=== PATIENT | male | born 1995 | race Caucasian/White ===

== ENCOUNTER 2020-04-13 19:53 | Observation (INO) ==
[2020-04-13] MEDS ORDERED: SODIUM CHLORIDE 0.9% 500 ML IV SCH (20:30)
--- NOTE | 2020-04-13 20:31 | Emergency Department Note ---
Impression & Plan RLQ abdominal pain, Acute appendicitis ED Provider Note NAME: ANAYA MILLER AGE: 24 SEX: M : 1995 ARRIVES VIA: Walk-In INFORMANT: [Patient] ED PROVIDER(S): [Raimundo Reddy MD] CHIEF COMPLAINT: Abdominal pain HISTORY OF PRESENT ILLNESS: The patient is a 24-year-old male who has had about 4 days of right lower quadrant abdominal pain. The pain is worse to palpate in the area and to walk, the pain is better sitting still. The pain is an 8/10. No pain radiation, no testicular pain. There has been no fever, nausea or vomiting, no diarrhea. Patient was concerned that this could be his appendix. He has no history of previous abdominal surgeries. REVIEW OF SYSTEMS: See HPI for pertinent positives and negatives. A total of ten systems were reviewed and were otherwise negative. PMHx/PSHx: See Below SOCIAL HISTORY: See Below. PHYSICAL EXAM: GENERAL: Patient is in no acute distress. HEENT: No acute trauma, normocephalic atraumatic, mucous membranes moist, no nasal congestion, no scleral icterus. NECK: No stridor, no adenopathy, no meningismus, trachea is midline. LUNGS: Clear to auscultation bilaterally, no wheeze, no rhonchi, breath sounds equal. HEART: Without murmurs gallops or rubs, regular rate and rhythm. ABDOMEN: Soft, moderately tender in the right lower quadrant, bowel sounds positive, no hernias. EXTREMITIES: No cyanosis or edema, full range of motion of all the joints without pain or difficulty, no signs for acute trauma. NEUROLOGIC: Oriented x 3, no acute motor or sensory deficits, no focal weakness. SKIN: No rash, no jaundice, no diaphoresis. DIFFERENTIAL DIAGNOSIS: Appendicitis, testicular torsion, infections, diverticulitis, UTI, obstruction, mesenteric ischemia, aortic pathology, inflammatory bowel disease, renal colic, PUD, pancreatitis, biliary pathology, hernia, volvulus, constipation, as well as other pathologies. EMERGENCY DEPARTMENT COURSE/PROCEDURES: MEDICAL DECISION MAKING: There is no leukocytosis or concerning anemia. There is a normal platelet count. Creatinine was mildly elevated at 1.41. No significant electrolyte abnormality. No liver enzyme elevation. No evidence for pancreatitis. Abdominal and pelvis CT suggest acute appendicitis without abscess or rupture. On exam, the patient was quite tender in the right lower quadrant. The patient received IV saline, 1 L. He did not require anything for pain. I spoke to the patient about his findings, I spoke with case management. The on-call surgeon was consulted. The diagnosis of appendicitis certainly explains his pain. Past Med/Surg History Medical History Asthma Social History Smoking Status: Never smoker Allergies Allergies Allergy/AdvReac Type Severity Reaction Status Date / Time No Known Allergies Allergy Unknown Verified 09/11/11 23:16 Home Meds Home Medications Medication Instructions Recorded Confirmed !Med List Verified In Ed #0 09/29/09 Albuterol (Ventolin) 2 puff INHALATION QID 5 Days #0 09/29/09 Cetirizine (Zyrtec Unkown Dose) #0 09/29/09 Results & Data (ED) Vital Signs Vital Signs - 24 hr 04/13/20 20:08 Temperature 36.5 C Temperature Source Oral Pulse Rate 94 H Respiratory Rate 18 Respiratory Effort / Characteristics Non-Labored Spontaneous Respiratory Depth Normal Blood Pressure 136/83 Blood Pressure Mean 100 Pulse Oximetry 97 Oxygen Delivery Method Room Air Sepsis New/Unexplained Change in Mental Status N/A Sepsis Action Taken by Nursing No Action Required Home Medications Current Medication List: was personally reviewed by me Laboratory Data Attestation: I reviewed the patient's lab results. Result diagrams: 04/13/20 20:20 04/13/20 20:20 Lab Results 04/13/20 04/13/20 Range/Units 20:20 20:20 WBC 8.01 (4.8-10.8) K/uL RBC 4.92 (4.7-6.1) M/uL Hgb 15.7 (14.0-18.0) g/dL Hct 44.3 (42-52) % MCV 90.0 (80-100) fL MCH 31.9 (25-34) pg MCHC 35.4 (32-36) g/dL RDW Std Deviation 42.2 (36.4-46.3) fL RDW Coeff of Veronica 12.8 (11.5-14.5) % Plt Count 192 (130-400) K/uL MPV 10.1 (7.4-10.4) fL Immature Gran % (Auto) 0.1 % Neut % (Auto) 60.7 % Lymph % (Auto) 24.7 % [place] % (Auto) 12.7 % Eos % (Auto) 1.6 % Baso % (Auto) 0.2 % Neut # (Auto) 4.85 (1.4-6.5) K/uL Lymph # (Auto) 1.98 (1.2-3.4) K/uL [place] # (Auto) 1.02 H (0.11-0.59) K/uL Eos # (Auto) 0.13 (0-0.5) K/uL Baso # (Auto) 0.02 (0-0.2) K/uL Immature Gran # (Auto) 0.01 (0.00-0.02) K/uL Sodium 142 (136-145) mmol/L Potassium 3.5 (3.5-5.1) mmol/L Chloride 105 (98-107) mmol/L Carbon Dioxide 32 (21-32) mmol/L Anion Gap 5.0 (3-11) BUN 19 H (7-18) mg/dl Creatinine 1.41 H (0.6-1.4) mg/dl Est Cr Clr Drug Dosing 107.5 ml/min Est GFR ( Amer) 79.7 Est GFR (Non-Af Amer) 68.7 BUN/Creatinine Ratio 13.3 (10-20) Glucose 99 (70-99) mg/dl Calcium 9.3 (8.5-10.1) mg/dl Total Bilirubin 0.5 (0.2-1) mg/dl AST 17 (15-37) U/L ALT 40 (12-78) U/L Alkaline Phosphatase 116 (45-117) U/L Total Protein 7.9 (6.4-8.2) gm/dl Albumin 4.2 (3.4-5.0) gm/dl Globulin 3.7 (2.5-4.0) gm/dl Albumin/Globulin Ratio 1.1 (0.9-2) Lipase 88 (73-393) U/L Administered Medications Discontinued Medications Sodium Chloride (Nss) 500 mls @ 999 mls/hr IV .Q31M NOLAN Stop: 04/13/20 21:00 Last Infusion: 04/13/20 21:15 Dose: 0 mls/hr Documented by: [id number] Admin: 04/13/20 20:45 Dose: 999 mls/hr Documented by: [id number] Sodium Chloride (Nss) 500 mls @ 999 mls/hr IV .Q31M ONE Stop: 04/13/20 21:21 Last Admin: 04/13/20 21:33 Dose: 999 mls/hr Documented by: [id number] Ioversol (Ioversol 100ml) 94 ml IV ONCE ONE Stop: 04/13/20 21:10 Last Admin: 04/13/20 21:10 Dose: 94 ml Documented by: [id number] Imaging Data Radiologist's Impression: CT of the abdomen pelvis with IV contrast: There is an enlarged appendix with mild periappendiceal stranding. This suggests acute appendicitis. No abscess. Discharge Plan Visit Data Chief Complaint: Abdominal Pain Stated Complaint: ABDOMINAL PAIN ED Provider: Raimundo Reddy Discharge Problem: RLQ abdominal pain, Acute appendicitis Patient Disposition: Admitted As Inpatient Condition: Good Forms Stand Alone Forms: [facility] Medical Prescriptions Prescriptions: No Action !Med List Verified In Ed . Qty: 0 RF: 0 Albuterol (Ventolin) inhaler 2 puff Inhalation QID 5 Days Qty: 0 RF: 0 Cetirizine (Zyrtec Unkown Dose) tablet Qty: 0 RF: 0 Referrals Referrals: PCP,NO [Primary Care Provider] - Discharge Problem: Acute appendicitis Qualifiers: Acute appendicitis type: with localized peritonitis Appendicitis gangrene presence: without gangrene Appendicitis perforation presence: without perforation Appendicitis abscess presence: without abscess Qualified Code(s): K35.30 - Acute appendicitis with localized peritonitis, without perforation or gangrene
[2020-04-13 20:34] LABS: Basophils # (auto) 0.02 K/uL (0-0.2); Basophils % (auto) 0.2 %; Eosinophils # (auto) 0.13 K/uL (0-0.5); Eosinophils % (auto) 1.6 %; Hematocrit (blood only) 44.3 % (42-52); Hemoglobin 15.7 g/dL (14.0-18.0); Immature Granulocytes # (auto) 0.01 K/uL (0.00-0.02); Immature Granulocytes % (auto) 0.1 %; Lymphocytes # (auto) 1.98 K/uL (1.2-3.4); Lymphocytes % (auto) 24.7 %; Mean Corpuscular Hemoglobin 31.9 pg (25-34); Mean Corpuscular Hgb Conc 35.4 g/dL (32-36); Mean Platelet Volume 10.1 fL (7.4-10.4); Monocytes # (auto) 1.02 K/uL (0.11-0.59); Monocytes % (auto) 12.7 %; Neutrophils # (auto) 4.85 K/uL (1.4-6.5); Neutrophils % (auto) 60.7 %; Platelet Count 192 K/uL (130-400); RDW Coefficient of Variation 12.8 % (11.5-14.5); RDW Standard Deviation 42.2 fL (36.4-46.3); Red Blood Count 4.92 M/uL (4.7-6.1); White Blood Count 8.01 K/uL (4.8-10.8)
[2020-04-13 20:47] LABS: Albumin Level 4.2 gm/dl (3.4-5.0); BUN Creatinine Ratio 13.3 (10-20); Calcium 9.3 mg/dl (8.5-10.1); Creatinine Clr Calc Pharmacy 107.5 ml/min; Est GFR (African American) 79.7; Est GFR (Non-African American) 68.7; Potassium 3.5 mmol/L (3.5-5.1)
[2020-04-13 20:50] LABS: Albumin Globulin Ratio 1.1 (0.9-2); Bilirubin,Total 0.5 mg/dl (0.2-1); Globulin 3.7 gm/dl (2.5-4.0); Total Protein 7.9 gm/dl (6.4-8.2)
[2020-04-13] MEDS ORDERED: SODIUM CHLORIDE 0.9% 500 ML IV ONE (20:51)
[2020-04-13] MEDS ORDERED: IOVERSOL 100ml IV ONE (21:09)
--- NOTE | 2020-04-13 22:05 | History & Physical Report ---
Date of Service April 13, 2020 Assessment & Plan (1) Acute appendicitis: -will plan on appendectomy tonight -will keep npo -will check COVID-19 status -will administer abx--mefoxin Dr. Delgado-patient seen in the emergency room with acute appendicitis Discussed laparoscopic appendectomy possible open appendectomy He does understand and does wish to proceed History of Present Illness Chief Complaint: Abdominal pain Primary Care Provider: NO PCP 24 year old male noted non-radiating RLQ abdominal pain that started about 4 days ago. The pain was described as sharp and would come and go. His family prompted him to seek medical attention as the pain has not completely resolved since it began 4 days ago. He has no fevers, nausea, or vomiting. He not the pain is generally better if he sits with his knees flexed. No provocative factors are noted. In the ED, he was afebrile with normal WBC. Ct scan of abdomen showed concern for acute appendicitis. He was in minimal pain and no distress at the isaiah eof my exam. Allergies Allergy/AdvReac Type Severity Reaction Status Date / Time No Known Allergies Allergy Unknown Verified 04/13/20 21:49 Home Medications Home Medications Medication Instructions Recorded Confirmed Type bupropion HCl 100 mg PO DAILY 04/13/20 04/13/20 History duloxetine 60 mg PO DAILY 04/13/20 04/13/20 History ibuprofen [Advil] 400 - 600 mg PO Q6H PRN 04/13/20 04/13/20 History Past Med/Surg History Medical History Asthma Social History Smoking Status: Never smoker Review of Systems Constitutional: no fever and no sweats Eyes: no diplopia Ear, Nose, Mouth, Throat: no ear pain Respiratory: no cough and no dyspnea Cardiovascular: no chest pain Gastrointestinal: + abdominal pain; no nausea and no vomiting Genitourinary: no dysuria Musculoskeletal: no back pain Integumentary: no rash Neurologic: no localized weakness Physical Exam Constitutional: well developed and well nourished; no acute distress Eyes: no conjunctival abnormality ENMT: Ears: no hearing impairment Neck: trachea midline Respiratory: normal respiratory effort, lungs clear to auscultation Cardiovascular: Rate/Rhythm: regular rate and regular rhythm Gastrointestinal (Abdomen): soft without distention, rebound tenderness or guarding; minimal pain with only dep palpation in RLQ Musculoskeletal: no calf pain Skin: no rashes, warm and dry Neurologic: moves all extremities Psychiatric: A+Ox3, euthymic affect Results & Data Results & Data ([facility]) Vital Signs (Past 12 Hours) Vital Signs Temp Pulse Resp BP Pulse Ox 04/13/20 20:08 36.5 C 94 H 18 136/83 97 PG Care Time/CCT Total # of Minutes Spent Total Time Spent with Patient: Total time spent is greater than 50% in coordination of care (as documented) at patient's floor/unit and/or counseling patient: Coding Level of Care Code 89287 OBS Care - Level 3 Diagnoses Acute appendicitis K35.30 Acute appendicitis type: with localized peritonitis Appendicitis abscess presence: without abscess Appendicitis gangrene presence: without gangrene Appendicitis perforation presence: without perforation (1) Acute appendicitis Acute appendicitis type: with localized peritonitis Appendicitis abscess presence: without abscess Appendicitis gangrene presence: without gangrene Appendicitis perforation presence: without perforation Qualified Code(s): K35.30 - Acute appendicitis with localized peritonitis, without perforation or gangrene
[2020-04-13] MEDS ORDERED: cefOXitin 2,000 MG/60 ML BAG IV STA (22:06)
--- NOTE | 2020-04-13 22:16 | Anesthesiology Consultation ---
Date of Service April 13, 2020 Assessment & Plan (1) Encounter for pre-operative examination: Chart Review Chart Review: Acceptable Risk for Surgery (COVID test pending) History Height/Weight Height: 6 ft 3 in Weight: 110.6 kg Allergies Allergy/AdvReac Type Severity Reaction Status Date / Time No Known Allergies Allergy Unknown Verified 04/13/20 21:49 Medications Home Medications Medication Instructions Recorded Confirmed Last Taken bupropion HCl 100 mg PO DAILY 04/13/20 04/13/20 04/13/20 duloxetine 60 mg PO DAILY 04/13/20 04/13/20 04/13/20 ibuprofen [Advil] 400 - 600 mg PO Q6H PRN 04/13/20 04/13/20 Unknown Past Medical History Medical History Asthma Social History Smoking Status: Never smoker Physical Exam Vital Signs Last Vital Signs Temp 36.5 C 04/13/20 20:08 Pulse 86 04/13/20 22:00 Resp 18 04/13/20 22:00 BP 124/74 04/13/20 22:00 Pulse Ox 98 04/13/20 22:00 Testing Laboratory Results 04/13/20 20:20 04/13/20 20:20
[2020-04-13] MEDS ORDERED: fentaNYL citrate 100 MCG/2 ML VIAL ONE (22:32)
[2020-04-13] MEDS ORDERED: MIDAZOLAM HCL 1 MG/ML 2ML VIAL ONE (22:32)
[2020-04-13 22:35] LABS: Appearance Urine Clear (Clear); Bilirubin Urine Negative (Negative); Blood Urine Negative (Negative); Color Urine Yellow; Glucose Urine UA Negative (Negative); Ketones Urine Negative (Negative); Leukocyte Esterase Urine Negative (Negative); Nitrite Urine Negative (Negative); Protein Urine Negative (Negative); Specific Gravity Urine > 1.045 (1.000-1.030); Urobilinogen Urine Negative (Negative)
[2020-04-13] MEDS ORDERED: BUPIVACAINE 0.5 % 5 MG/1 ML MPF 30ML VIAL ONE (22:44)
[2020-04-13] MEDS ORDERED: ATROPINE SULFATE 0.1 MG/ML 10ML SYR IV PRN (23:28)
[2020-04-13] MEDS ORDERED: ONDANSETRON INJ 2 MG/ML 2 ML VIAL IV PRN (23:28)
[2020-04-13] MEDS ORDERED: KETOROLAC 30 MG/ML VIAL IV PRN (23:28)
[2020-04-14] MEDS ORDERED: SUCCINYLCHOLINE 100MG/5ML SYR IV ONE (00:24)
[2020-04-14] MEDS ORDERED: PROPOFOL IV EMULSION 10 MG/ML 20 ML VIAL IV ONE (00:24)
[2020-04-14] MEDS ORDERED: ONDANSETRON INJ 2 MG/ML 2 ML VIAL ONE ×2 (00:24→01:36)
[2020-04-14] MEDS ORDERED: ROCURONIUM BROMIDE 10 MG/ML 5 ML VIAL IV ONE (00:24)
[2020-04-14] MEDS ORDERED: METOCLOPRAMIDE HCL INJ 5 MG/ML 2 ML VIAL ONE (00:24)
[2020-04-14] MEDS ORDERED: LIDOCAINE HCL 2% 2 ML VIAL/AMP(20MG/ML) INFIL ONE (00:24)
[2020-04-14] MEDS ORDERED: ACETAMINOPHEN 1,000 MG/100 ML VIAL IV ONE (00:25)
--- NOTE | 2020-04-14 00:25 | Post Operative Brief Note ---
PG Immediate Post Op with CF Date of Surgery April 14, 2020 Pre & Post Diagnosis Operation Date: 04/13/20 23:15 Pre-Op Diagnosis: Acute Appendicitis Post-Op Diagnosis: Acute Appendicitis I identified the patient and participated in the time-out.: Yes Procedure Operation Date: 04/13/20 23:15 Actual Procedures p Laparoscopic Appendectomy - Joaquin Delgado MD, FACS Surgeon Joaquin Delgado MD, FACS Temperature Inspector Stanley Lu Estimated Blood Loss 10 Findings Consistent with Post-Op Diagnosis Specimens Specimen Description: A. Appendix
[2020-04-14] MEDS ORDERED: KETOROLAC 30 MG/ML VIAL ONE (00:57)
--- NOTE | 2020-04-14 01:18 | Anesthesiology Progress Note ---
Date of Service April 14, 2020 Anesthesia Post Procedure Vital Signs Vital Signs: Temp Pulse Pulse Resp BP BP Pulse Ox 04/13/20 22:56 93 H 20 130/83 98 04/13/20 22:00 86 18 124/74 98 04/13/20 20:08 36.5 C 94 H 18 136/83 97 Pain Intensity Right Lower Abdomen: Pain Intensity: 4 Transfer of Care Handoff Completed per policy Notes Mental Status: alert / awake / arousable Patient Amnestic to Procedure: Yes Nausea / Vomiting: adequately controlled Pain: adequately controlled Airway Patency, RR, SpO2: stable & adequate BP & HR: stable & adequate Hydration State: stable & adequate Anesthetic Complications: no major complications apparent
[2020-04-14] MEDS ORDERED: HYDROmorphone INJ 0.5 MG/0.5 ML SYR ONE (01:21)
[2020-04-14] MEDS: HYDROmorphone INJ 0.5 MG/0.5 ML SYR IV PRN ×2 (01:22→01:33)
--- NOTE | 2020-04-14 01:46 | Operative Report (OR) ---
DATE OF OPERATION: 04/13/2020 NAME OF OPERATION: Laparoscopic appendectomy. PREOPERATIVE DIAGNOSIS: Acute appendicitis. POSTOPERATIVE DIAGNOSIS: Acute appendicitis. STAFF SURGEON: Joaquin Delgado MD. VERIFIER: Alf Lu. ANESTHESIA: General. DESCRIPTION OF PROCEDURE: The patient was brought in the operating room and placed on the operating table in supine position. Pneumatic stockings, orogastric tube were placed. His abdomen was prepped and draped in usual fashion. My review assistant helped with prepping, draping, removal of the appendix and closure of the wounds. Incision was made above the umbilicus. All incisions were anesthetized using 0.5% plain Marcaine. Dissection was carried down to the fascia, placing a Veress needle producing pneumoperitoneum. An 11 mm port was placed at this level and then under visualization, a 5 mm port was placed suprapubically and a 12 mm port placed in left lower quadrant. The cecum was reflected. The appendix was observed. It was thickened and inflamed. The base of the appendix was transected using an Endo-DEREK stapler. Then with 2 loads, the mesoappendix transected using the Endo DEREK stapler. The appendix was placed in an Endobag and removed through the 12 mm port site. After appropriate irrigation and hemostasis, all ports were removed, the umbilical site and left lower quadrant site closed, reapproximating the fascia using 0 Vicryl suture and the skin reapproximated using subcuticular 4-0 Monocryl with Dermabond and Steri-Strips in the left lower quadrant. The patient was transferred to recovery room in stable condition. I attest to the content of the Intraoperative Record and any orders documented therein. Any exception s are noted below.
[2020-04-14] MEDS ORDERED: SODIUM CHLORIDE 0.9% 1000ML 1,000 ML IV SCH (01:57)
[2020-04-14] MEDS ORDERED: ACETAMINOPHEN 325 MG TAB PO PRN (01:57)
[2020-04-14] MEDS ORDERED: PROMETHAZINE HCL 12.5 MG in SODIUM CHLORIDE 0.9% 50 ML IV PRN (01:57)
[2020-04-14] MEDS ORDERED: PROMETHAZINE HCL 25 MG in SODIUM CHLORIDE 0.9% 50 ML IV PRN (01:57)
[2020-04-14] MEDS ORDERED: HYDROmorphone INJ 0.5 MG/0.5 ML SYR IV PRN (01:57)
[2020-04-14] MEDS ORDERED: HYDROCODONE/ACETAMOPHEN 5/325MG TAB PO PRN ×2 (01:57)
[2020-04-14] MEDS ORDERED: ONDANSETRON INJ 2 MG/ML 2 ML VIAL IV PRN (01:57)
[2020-04-14] MEDS ORDERED: HYDROmorphone INJ 1 MG/ML SYRINGE IV PRN (01:57)
[2020-04-14] MEDS ORDERED: IBUPROFEN 600 MG TAB PO PRN (01:57)
--- NOTE | 2020-04-14 06:50 | Surgery Progress Note ---
Date of Service April 14, 2020 Assessment & Plan (1) S/P laparoscopic appendectomy: Patient status post laparoscopic appendectomy Continue patient on IV antibiotics He appears to be comfortable at the present time Advance diet and activity Admission and Anticipated Discharge Date Admission Date: April 14, 2020 Results & Data ([facility]) Vital Signs (Past 12 Hours) Vital Signs Temp Pulse Pulse Pulse Pulse Resp BP 04/14/20 04:15 36.5 C 95 H 14 04/14/20 03:05 36.6 C 97 H 18 04/14/20 02:35 36.5 C 73 16 04/14/20 02:00 65 16 04/14/20 01:50 64 16 04/14/20 01:40 36.8 C 61 14 04/14/20 01:30 59 L 17 04/14/20 01:20 72 18 04/14/20 01:15 64 16 04/14/20 01:10 63 16 04/14/20 01:05 71 18 04/14/20 01:00 69 16 04/14/20 00:55 62 18 04/14/20 00:50 36.4 C L 63 17 04/13/20 22:56 93 H 20 04/13/20 22:00 86 18 04/13/20 20:08 36.5 C 94 H 18 136/83 BP Pulse Ox 04/14/20 04:15 106/64 95 04/14/20 03:05 144/76 H 95 04/14/20 02:35 134/77 95 04/14/20 02:00 159/88 H 94 04/14/20 01:50 159/92 H 94 04/14/20 01:40 166/94 H 91 04/14/20 01:30 160/97 H 95 04/14/20 01:20 156/100 H 96 04/14/20 01:15 163/102 H 97 04/14/20 01:10 159/101 H 96 04/14/20 01:05 124/69 95 04/14/20 01:00 160/95 H 98 04/14/20 00:55 146/85 H 95 04/14/20 00:50 141/85 H 95 04/13/20 22:56 130/83 98 04/13/20 22:00 124/74 98 04/13/20 20:08 97 PG Care Time/CCT Total # of Minutes Spent Total Time Spent with Patient: Total time spent is greater than 50% in coordination of care (as documented) at patient's floor/unit and/or counseling patient: Coding Level of Care Code None Diagnoses S/P laparoscopic appendectomy Z90.49
--- NOTE | 2020-04-14 07:42 | CT Scan Report ---
CT SCAN OF THE ABDOMEN AND PELVIS WITH IV CONTRAST CLINICAL HISTORY: Right lower quadrant abdominal pain. COMPARISON STUDY: No priors. TECHNIQUE: Following the IV administration of 94 cc of Optiray 320, CT scan of the abdomen and pelvi s is performed from the lung bases to the proximal femora. Images are reviewed in the axial, sagittal , and coronal planes. IV contrast was administered without complication. A dose lowering technique wa s utilized adhering to the principles of ALARA. The examination is degraded by motion artifact. CT DOSE: 826.63 mGy.cm FINDINGS: Lung bases: The heart is normal in size and without pericardial effusion. There are small bilateral f at-containing Bochdalek hernias. The lung bases are clear. Liver: The contrast-enhanced liver is normal in size, contour, and attenuation. There is no intrahepa tic biliary ductal dilatation. The hepatic veins and portal veins are patent. Gallbladder: Unremarkable. Spleen: Normal in size and attenuation. Pancreas: Unremarkable. Adrenal glands: Unremarkable. Kidneys: The contrast enhanced kidneys are normal in size and without hydronephrosis. The kidneys enh ance symmetrically. Abdominal vasculature: The abdominal aorta is normal in course and caliber. Bowel: There is no bowel obstruction. The appendix is distended and fluid-filled as seen on image #3 07. This measures up to 13 mm diameter. The appendiceal wall is thickened and there is periappendicea l inflammation and trace fluid. Findings are consistent with acute appendicitis. No organized fluid c ollection is seen to suggest abscess. Peritoneum: There is no intraperitoneal free air or abdominal ascites. There is a small fat-containin g umbilical hernia. Lymphadenopathy: Prominent mesenteric lymph nodes and right lower quadrant measure up to 10 mm. Pelvic viscera: The bladder, prostate, and seminal vesicles are normal as visualized. Skeletal structures: No lytic or blastic lesions are seen. IMPRESSION: 1. Findings are consistent with acute appendicitis. 2. There is no evidence of abscess or perforation. ACT 112: Negative or not required by law. Electronically signed by: Raimundo Cheng M.D. 04/14/2020 7:40 AM
[2020-04-14] MEDS: DULoxetine HCL 60 MG CAP PO SCH ×2 (09:52→12:04)
[2020-04-14] MEDS: DOCUSATE SODIUM/SENNA 50/8.6MG TAB PO SCH ×2 (09:52→12:05)
[2020-04-14] MEDS: buPROPion SR 100 MG TABCR PO SCH ×2 (09:52→12:05)
--- NOTE | 2020-04-14 16:34 | Anesthesiology Progress Note ---
Date of Service April 14, 2020 late entry; pt seen this am at 0800 Anesthesia Post Procedure Vital Signs Vital Signs: Temp Pulse Pulse Pulse Pulse Pulse Resp 04/14/20 07:40 36.5 C 95 H 18 04/14/20 04:15 36.5 C 95 H 14 04/14/20 03:05 36.6 C 97 H 18 04/14/20 02:35 36.5 C 73 16 04/14/20 02:00 65 16 04/14/20 01:50 64 16 04/14/20 01:40 36.8 C 61 14 04/14/20 01:30 59 L 17 04/14/20 01:20 72 18 04/14/20 01:15 64 16 04/14/20 01:10 63 16 04/14/20 01:05 71 18 04/14/20 01:00 69 16 04/14/20 00:55 62 18 04/14/20 00:50 36.4 C L 63 17 04/13/20 22:56 93 H 20 04/13/20 22:00 86 18 04/13/20 20:08 36.5 C 94 H 18 BP BP Pulse Ox 04/14/20 07:40 116/75 96 04/14/20 04:15 106/64 95 04/14/20 03:05 144/76 H 95 04/14/20 02:35 134/77 95 04/14/20 02:00 159/88 H 94 04/14/20 01:50 159/92 H 94 04/14/20 01:40 166/94 H 91 04/14/20 01:30 160/97 H 95 04/14/20 01:20 156/100 H 96 04/14/20 01:15 163/102 H 97 04/14/20 01:10 159/101 H 96 04/14/20 01:05 124/69 95 04/14/20 01:00 160/95 H 98 04/14/20 00:55 146/85 H 95 04/14/20 00:50 141/85 H 95 04/13/20 22:56 130/83 98 04/13/20 22:00 124/74 98 04/13/20 20:08 136/83 97 Pain Intensity Right Lower Abdomen: Pain Intensity: 7 Bilateral Lower Abdomen: Pain Intensity: 4 Notes Mental Status: alert / awake / arousable and participated in evaluation Nausea / Vomiting: adequately controlled Pain: adequately controlled Airway Patency, RR, SpO2: stable & adequate BP & HR: stable & adequate Hydration State: stable & adequate Anesthetic Complications: no major complications apparent and Pt Satisfied with anesthetic care
--- NOTE | 2020-04-17 13:37 | Discharge Summary (DS) ---
PRINCIPAL DIAGNOSIS: Acute appendicitis. PROCEDURES: The patient underwent laparoscopic appendectomy. HISTORY OF PRESENT ILLNESS: The patient is a 24-year-old male presenting to the Emergency Room with acute abdominal pain, found to have acute appendicitis. He was taken to the operating room where he underwent laparoscopic appendectomy, which he tolerated very well. He progressed well and was felt stable for discharge on 04/14/2020 to be followed in the surgical clinic within 1-2 weeks.
== END 2020-04-14 14:15 | disposition home or self-care (01) ==
LOC: ED 19:53 → OR 22:57 → 3N 04-14 00:25 → INTOOBSV 04-14 00:25